=== PATIENT | male | born 1970 | race Caucasian/White ===

== ENCOUNTER → 2019-12-14 06:20 | Outpatient (CLI) | payer BC, SELFPAY ==
[2019-11-11 14:57] VITALS: BMI 35.1
--- NOTE | 2019-12-14 06:25 | ECHOCS_ITS ---
Reason For Study: CHEST PAIN Procedure This was a 2D Doppler, Color Flow transthoracic echocardiogram. The study was technically difficult. Due to body habitus. Contrast injection was performed. Left Ventricle Normal LV size. Left ventricular systolic function is normal. The estimated ejection fraction is 65 %. No evidence for diastolic dysfunction. No regional wall motion abnormalities noted. Right Ventricle Normal RV size. Normal systolic function. Atria Normal left atrium. Normal right atrium. No doppler evidence for ASD. Mitral Valve There is no mitral annular calcification. Normal mitral valve. Trivial mitral valve insufficiency. Tricuspid Valve Normal tricuspid valve. Trivial tricuspid valve insufficiency. Unable to estimate RV systolic pressure/pulmonary artery pressure due to technically difficult study. Aortic Valve Trisinus/trileaflet aortic valve. Normal aortic valve. Pulmonic Valve The pulmonic valve is not well visualized. Great Vessels Normal sized aortic root. Pericardium/Pleural No pericardial effusion. Medication Diluted definity 3.0ml given slow IV push to enhance endocardial definition. MMode/2D Measurements & Calculations LVIDd: 5.1 cm IVSd: 0.89 cm Ao root diam: 3.7 cm LVIDs: 3.6 cm LVPWd: 0.93 cm RVDd: 2.8 cm FS: 28.9 % LAV(MOD-bp): 49.8 ml LA A4 area: 16.9 cm2 LA dimension(2D): 3.6 cm LAV(MOD-bp) Indexed: 21.5 ml/m2 LAV(MOD-sp2): 44.7 ml LAV(MOD-sp4): 43.8 ml RA A4 area: 13.5 cm2 Time Measurements MV dec time: 0.17 sec Doppler Measurements & Calculations MV E max johan: 87.3 cm/sec Lat Peak E' Johan: 11.4 cm/sec Med Peak E' Johan: 8.0 cm/sec MV A max johan: 78.2 cm/sec E/E' lat: 7.7 E/E' med: 10.9 MV E/A: 1.1 Ao V2 max: 141.8 cm/sec LV V1 max: 122.4 cm/sec PA V2 max: 97.1 cm/sec Ao max P.0 mmHg LV V1 max P.0 mmHg Interpretation Summary The study was technically difficult. Contrast injection was performed. Left ventricular systolic function is normal. The estimated ejection fraction is 65 %. Trivial mitral valve insufficiency. Trivial tricuspid valve insufficiency. Unable to estimate RV systolic pressure/pulmonary artery pressure due to technically difficult study. No evidence for diastolic dysfunction. Ordering Physician: Godfrey Mon Referring Physician: Chapito Gonzalez Performed By: Socorro Lowry, RDCS, RVT
--- NOTE | 2019-12-14 08:10 | STRESSREP_ITS ---
Stress Test Report Date: 12-14-2019 Procedure: Exercise tolerance test/imaging study Indications: Chest pain Consent: Per the patient Procedure: The patient exercised on a Loco protocol for 7 minutes and 15 seconds completing Stage II and 1 minute and 15 seconds of Stage III achieving a peak heart rate of 148 bpm (90 % predicted maximal heart rate) with a peak blood pressure 152/82 mmHg and a peak MET capacity of 8 METs. The baseline ECG demonstrated normal sinus rhythm. The peak exercise ECG demonstrated no obvious ECG changes. There were no cardiac dysrhythmias pretest, during exercise, or recovery. The functional capacity was considered average. There was no complaint of chest discomfort during exercise or recovery. The examination was discontinued secondary to dyspnea and left hip discomfort. Impression: 1. Technically adequate (percent predicted maximal heart rate greater than 85%) exercise tolerance test 2. Peak exercise ECG with no obvious ECG changes 3. There were no cardiac dysrhythmias pretest, during exercise, or recovery 4. Nuclear images pending Myocardial perfusion imaging study: Technique: The patient was injected with mCi of technetium 99m Cardiolite and subsequently rest SPECT Cardiolite nuclear imaging was obtained in the horizontal long, vertical long, and short axis views. The patient exercised on a Loco protocol for 7 minutes and 15 seconds completing Stage II and 1 minute and 15 seconds of Stage III achieving a peak heart rate of 148 bpm (90 % predicted maximal heart rate) with a peak blood pressure 152/82 mmHg and a peak MET capacity of 8 METs. The patient was injected with mCi of technetium 99m Cardiolite and subsequently stress SPECT Cardiolite nuclear imaging was obtained in the horizontal long, vertical long, and short axis views. A gated Cardiolite study at peak stress was obtained. Interpretation: Rest and stress SPECT Cardiolite nuclear imaging status post realignment, no rmalization, and attenuation correction, demonstrates the appearance of relative uniform tracer uptake and myocardial perfusion appearing within normal limits. There is end systolic thickening and brightening. The gated Cardiolite study demonstrates myocardial thickening and inward wall motion. The reported LVEF is 67 %. Impression: 1. Rest and stress SPECT Cardiolite nuclear imaging demonstrate relative uniform tracer uptake and myocardial perfusion appearing within normal limits. 2. The gated Cardiolite study reports an LVEF of 67 %. This note was generated with [employer] software. It may contain incorrect words, spelling, and punctuation that were not noted in checking the note before signing.
== END ==
LOC: CVS 06:25
PROVIDERS: PCP Preventive Medicine Occupational Medicine; Referring Provider Internal Medicine Cardiovascular Disease; Visit Provider Internal Medicine Cardiovascular Disease
DX: R07.9 Chest pain, unspecified (principal); R07.2 Precordial pain; G47.00 Insomnia, unspecified; F41.9 Anxiety disorder, unspecified
CPT/HCPCS: 78452; 93017; 93306; A9500; Q9957; A4216; C8929

== ENCOUNTER → 2020-02-14 | Outpatient (CLI) | payer BC, SELFPAY ==
[2020-01-27 15:45] VITALS: BMI 34.3
== END | disposition home or self-care (01) ==
LOC: LABSPEC 17:53
PROVIDERS: PCP Preventive Medicine Occupational Medicine; Referring Provider Nurse Practitioner Primary Care; Visit Provider Nurse Practitioner Primary Care
DX: Z20.828 Contact with and (suspected) exposure to other viral communicable diseases (principal); R05 Cough; R11.0 Nausea
CPT/HCPCS: 87635; C9803; G2023; U0003

== ENCOUNTER → 2020-07-29 08:37 | Outpatient (CLI) | payer BC, SELFPAY ==
[2020-01-27 15:45] VITALS: BMI 34.3
--- NOTE | 2020-07-29 09:15 | MRI_ITS ---
STUDY: MRI LUMBAR SPINE WITHOUT CONTRAST REASON FOR EXAM: Male, 49 years old. DDD, RIGHT leg numbness,LEFT hip pain, LBP TECHNIQUE: Standardized fat and water weighted pulse sequences were obtained in the sagittal and axial planes. COMPARISON: None FINDINGS: Normal lumbar lordosis. There is no substantial scoliosis. Normal conus medullaris that terminates at the L1. L1-2: There is minimal disc space narrowing and endplate spondylosis. There is no significant disc herniation, central canal or foraminal stenosis. L2-3: There is moderate disc space narrowing and endplates spondylosis. Minimal disc bulge and mild facet arthropathy without significant central canal or foraminal stenosis. L3-4: There is mild disc space narrowing and endplates spondylosis. Mild disc bulge and facet arthropathy without significant central canal or foraminal stenosis. L4-5: There is minimal disc space narrowing and endplates spondylosis. Mild disc bulge and facet arthropathy without significant central canal stenosis. Mild right and mild left foraminal stenosis. L5-S1: There is mild disc space narrowing and endplates spondylosis. Mild disc bulge and moderate facet arthropathy without significant central canal or foraminal stenosis. There is minimal grade 1 anterolisthesis. Normal visualized sacral ala. MRI/Spine Lumbar (Routine) IMPRESSION: L5/S1: Facet arthropathy with minimal grade 1 anterolisthesis. Electronically Signed: Ratna Gallo MD at 9:26 EST Tel , Service support ,
== END ==
PROVIDERS: PCP Preventive Medicine Occupational Medicine; Referring Provider Family Medicine; Visit Provider Family Medicine
DX: M51.36 Other intervertebral disc degeneration, lumbar region (principal)
CPT/HCPCS: 72148

== ENCOUNTER 2023-06-19 13:28 | Emergency (ER) | payer BC, SELFPAY ==
[2023-06-19 13:29] VITALS: BP 128/80; PULSE 104; RESP 18; TEMP 36.9; O2SAT 94
[2023-06-19 13:57] VITALS: BP 113/76; PULSE 95; RESP 16
[2023-06-19 13:59] VITALS: BMI 34.4
--- NOTE | 2023-06-19 14:29 | CT_ITS ---
STUDY: CT BRAIN WITHOUT CONTRAST REASON FOR EXAM: Male, 52 years old. Pain RADIATION DOSAGE (If Supplied By Facility): CTDIvol = ( 44.99 ) mGy, DLP = ( 931.09 ) mGycm TECHNIQUE: Transaxial CT imaging of the brain was performed without administration of intravenous contrast material. Individualized dose optimization techniques were used for this CT. COMPARISON: No relevant priors. FINDINGS: Normal soft tissue structures. Normal calvarium. Normal size ventricles and extra-axial spaces for the patient''s age. Normal white matter tracts of the cerebral hemispheres. Normal basal ganglia and thalami. Normal brainstem. Normal cerebellum. There is no intracranial hemorrhage. There are no findings of an acute ischemic infarction. Normal visualized paranasal sinuses. CT/Brain/Head without Contrast IMPRESSION: Normal unenhanced CT scan of the brain. Electronically Signed: Sofiya Sen MD at 17:00 EST Reading Location ID and State: [id number] / Tel , Service support ,
--- NOTE | 2023-06-19 14:30 | CT_ITS ---
INDICATION: Injury/Pain EXAMINATION: CT CERVICAL SPINE - CT Spine Cervical W/O Contrast Injection TECHNIQUE: Helically acquired images were obtained of the cervical spine. 2D reformatted images were reviewed. A radiation dose optimization technique was used for this scan. IV Contrast dosage and agent: None. RADIATION DOSAGE (If Supplied By Facility): CTDIvol = ( 23.48 ) mGy, DLP = ( 567.34 ) mGycm COMPARISON: FINDINGS: VERTEBRAE: No fracture or traumatic subluxation. No discrete lytic or blastic abnormality. Normal alignment. Normal craniocervical junction and cervicothoracic junction. DISCS and SPINAL CANAL: Disc heights are preserved. No critical stenosis. Multilevel foraminal encroachment due to uncinate and facet hypertrophy. NECK SOFT TISSUES: No prevertebral soft tissue swelling. There is no cervical adenopathy. LUNG APICES: Clear. CT/Spine Cervical without Contras IMPRESSION: No evidence of acute cervical spinal fracture or spondylolisthesis. Electronically Signed: Sofiya Sen MD at 17:18 EST Reading Location ID and State: [id number] / Tel , Service support ,
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
[2023-06-19] MEDS: DiphenhydrAMINE 50 MG/ML Syringe 25 MG IV (14:43)
[2023-06-19] MEDS: 0.9% Normal Saline (1000mL) 1,000 ML 999 ML IV (14:43)
[2023-06-19] MEDS: Metoclopramide 10 MG/2 ML Vial IV (14:44)
[2023-06-19 14:45] LABS: Absolute Lymphocyte Count 0.54 X10^3/uL (0.83-4.51); Absolute Neutrophil Count 5.9 X10^3/uL (2.0-7.7); Basophil# 0.05 X10^3/uL; Basophil% 0.7 % (0-1); Eosinophil# 0.16 X10^3/uL; Eosinophils% 2.2 % (0-5); Hemoglobin 14.7 g/dL (13.0-16.5); Lymphocyte # 0.54 X10^3/ul (0.83-4.51); Lymphocyte % 7.4 % (19-41); Mean Corp Hgb Conc 33.4 g/dL (32-36); Mean Corpuscular Hgb 29.6 pg (27.0-32.0); Mean Corpuscular Volume 88.5 fL (80-94); Mean Platelet Vol. 9.5 fl (6.2-12.0); Monocyte# 0.65 X10^3/uL; Monocyte% 8.9 % (0-10); NRBC Flagged by Analyzer 0 % (0-5); Neutrophil # 5.88 X10^3/uL (2.7-7.7); Neutrophil % 80.3 % (47-70); POSITIVE DIFFERENTIAL YES; Platelet Count 250 K/mm3 (150-450); RBC Distribution Width CV 13.2 % (11.6-14.6); RBC Distribution Width SD 42.8 fl (35.1-43.9); Red Blood Count 4.97 M/mm3 (4.6-6.2); White Blood Count 7.3 K/mm3 (4.4-11.0)
[2023-06-19 14:49] LABS: Differential Indicated SCAN CRITERIA MET
[2023-06-19 14:58] LABS: Anion Gap 6 (5-15); BUN 10 mg/dL (7-18); BUN/Creat Ratio 9.9 RATIO (10-20); Calcium,Total 8.5 mg/dL (8.5-10.1); Chloride 104 mmol/L (98-107); Creatinine, Serum 1.01 mg/dL (0.70-1.30); EST Glomerular Filtration Rate 82 mL/min (>60); Est Glom Filt Rate - Afr Amer 99 mL/min (>60); Estimated Creatinine Clearance 91.77 ml/min; Glucose 110 mg/dL (74-106); Potassium 3.6 mmol/L (3.5-5.1); Sodium Level 138 mmol/L (136-145)
[2023-06-19 15:03] LABS: Differential Comment SCANNED
[2023-06-19 16:58] VITALS: BP 127/92; PULSE 91; RESP 16; O2SAT 99
--- NOTE | 2023-06-19 17:55 | ED.RN ---
Ambulatory to bathroom, gait steady.
== END 2023-06-19 19:13 | disposition home or self-care (01) ==
PROVIDERS: Emergency Provider Emergency Medicine; PCP Preventive Medicine Occupational Medicine; Visit Provider Emergency Medicine
DX: S06.0X0A Concussion without loss of consciousness, initial encounter (principal); V89.2XXA Person injured in unspecified motor-vehicle accident, traffic, initial encounter; R06.02 Shortness of breath; M54.50 Low back pain, unspecified; M54.2 Cervicalgia; R05.9 Cough, unspecified; Z87.891 Personal history of nicotine dependence
CPT/HCPCS: 70450; 72125; 80048; 85025; 96361; 96374; 96375; 99283; J7030; A4216

== ENCOUNTER 2024-11-13 03:30 | Emergency (ER) | payer BC, SELFPAY ==
[2024-11-13 03:33] VITALS: BP 126/92; PULSE 88; RESP 18; TEMP 36.5; O2SAT 95; BMI 33.3
--- NOTE | 2024-11-13 03:33 | EDS_ITS ---
HPI History of Present Illness Chief Complaint: Back PFSH PFS Medical History (Updated 11/13/24 @ 03:[address] Slim Flores, DO) Insomnia Chest pain Anxiety Home Medications ?Medication ?Instructions ?Recorded ?Last Taken ?Type diazepam 5 mg tablet 5 mg PO TID 11/08/19 Unknown History nitroglycerin 0.4 mg sublingual 0.4 mg sublingual Q5-1 5M PRN chest 11/08/19 Unknown History tablet pain zolpidem 10 mg tablet (Ambien) 10 mg PO QHS PRN sleep 11/08/19 Unknown History doxycycline hyclate 100 mg capsule 100 mg PO Q12H 11/02 09/28 Unknown History orphenadrine citrate 100 mg 100 mg PO BID PRN back adelaida n #14 11/13/24 Unknown Rx tablet,extended release tabs oxycodone 5 mg tablet 5 mg PO Q6H PRN pain 3 days #12 11/13/24 Unknown Rx tabs prednisone 20 mg tablet 40 mg (2 x 20 mg) PO DAILY 5 days 11/13/24 Unknown Rx #10 TABLETS Allergy/AdvReac Type Severity Reaction Status Date / Time No Known Allergies Allergy Verified 01/27/20 15:45 Family History Mother Diabetes Father No problems noted. Surgical History History of cholecystectomy Social History (Updated 06/19/23 @ 14:[address] Wang Herrmann, DO) Smoking Status: Former smoker alcohol intake: current details: occasional substance use type: does not use caffeine: Yes EXAM Physical Exam Const Vital Signs: 11/13/24 03:33 11/13/24 03:36 Temperature 97.7 F L Temperature Source Oral Pulse Rate 88 Respiratory Rate 18 Respiratory Effort Normal Non-Labored Respiratory Pattern Normal Blood Pressure 126/92 H Blood Pressure Mean 103 Pulse Ox 95 Oxygen Delivery Method Room Air MDM MDM MDM Narrative Medical decision making narrative: HISTORY OF PRESENT ILLNESS: Chief complaint: Back pain 54-year-old male history of chronic back pain presents with back pain. No trauma endorsed. No clear inciting event although he does remember working on a [employer] machine the other day and this may have exacerbated underlying back pain. No fever. No difficulty urinating. Patient denies any saddle anesthesia, urinary retention, bowel or bladder incontinence, lower extremity weakness, fever or IV drug use, no recent spinal manipulation or surgery, no recent urinary catheterization. REVIEW OF SYSTEMS: Pertinent positives: Back pain Pertinent negatives: Urinary complaint PHYSICAL EXAM: Nursing triage notes reviewed, Vital signs reviewed Constitutional: please see mdm HENT: MMM Eyes: Pupils equal round and reactive to light, Extraocular muscles intact Neck: No stridor, no JVD, full neck ROM Lungs: Clear to auscultation, No wheezing or rales. No increased work of breathing, no conversational dyspnea, no accessory muscle use, no nasal flaring. No respiratory distress noted Heart: Regular rate and rhythm, No murmurs, No rubs and No gallops, 2+ distal pulses (radial, femoral, posterior tibial) in all extremities Abdomen: Soft, there is no tenderness, rigidity, rebound or guarding, no obvious peritoneal signs, no palpable pulsatile abdominal masses, no auscultated abdominal bruit : No CVAT Back: No midline step-offs or deformities, TTP over left paraspinal musculature at the thoracolumbar junction, pain is reproducible on palpation of the back. Extremities: No edema, positive straight leg raise test on the left Neuro: Intact sensation L1-S1 dermatomal distributions. Intact 5/5 strength in hip flexion (T12-L3). Knee extension (L2-L4). Ankle dorsiflexion (L4-L5). Ankle plantar flexion (S1). Great toe extension (L5). 2+ patellar and Achilles DTRs. Skin: No rash or lesions noted MEDICAL DECISION MAKING: Chief Complaint: please see HPI External records reviewed: Reviewed prior imaging studies: Reviewed MRI of the back from 2019 which shows stable multilevel degenerative changes Factors affecting care: Chronic back pain Social determinants of health: Patient denies IV drug use History obtained from others: none Consults: none [facility] Narrative: The patient was initially hemodynamically stable, afebrile and nontoxic- appearing. Patient was in quite a pain initially however his vitals are completely stable. He is afebrile. He is nontoxic-appearing. His neurologic exam was nonfocal. I considered the following differential diagnosis: Space-occupying lesion of the spine (conus medullaris, epidural abscess, cauda equina), acute on chronic back pain, musculoskeletal strain, lumbar radiculopathy The patient's history and physical exam are consistent with likely acute on chronic back pain. The patient presented complaining of back pain. There was no evidence to support genitourinary etiology. There is also no evidence to suggest vascular pathology such as AAA dissection. No fevers or other evidence to suspect infectious processes, abscess, osteomyelitis etc. The patient?s neurological exam is normal with normal motor and sensory. There is no saddle paresthesias reported and no bowel or bladder incontinence or retention. I suspect the pain is mechanical in nature. Clinical suspicion, plan of care and management was discussed with the patient. The patient was instructed to follow up with their health care provider. The patient was also instructed to return if the pain worsened, changed, or developed weakness or bowel or bladder trouble. The patient agreed with plan. I completed a structured, evidence-based clinical evaluation to screen for acute non-traumatic spinal emergencies. The patient has a normal detailed neurologic exam and red flag historical factors were negative. The evidence indicates that the patient is very low risk for an acute spinal emergency and this is consistent with my clinical intuition. The risk of further workup is higher than the likelihood of the patient having a spinal epidural abscess or other dangerous emergency spinal condition. It is, therefore, in the patient?s best interest not to do additional emergent testing at this time. Shared Decision-Making I have discussed with the patient my clinical impression and the result of an evidence-based clinical evaluation to screen for spinal epidural abscess and other spinal emergencies, as well as the risk of further testing and hospitalization. The evidence shows that the risk for an acute spinal emergency is less than 1%. Although the risk of an acute spinal emergency has not been completely eliminated, the risks of further testing likely exceed any potential benefit, and the patient agrees with not pursuing further emergent evaluation for causes of back pain at this time. The patient and/or family, caregivers express understanding. The patient and/or family, caregivers agrees with the plan. Total critical care time today provided was at least 0 minutes. This excludes separately billable procedures. Critical care time (if documented) is secondary to the patient having high probability of clinically significant/life threatening deterioration in the patient's condition which required my urgent intervention. Impression: 1. Acute on chronic back pain Dispo: Discharge home This note was generated with [employer] dictation software. It may contain incorrect words, spelling, and punctuation that were not noted in review of the chart prior to signing. Discharge Plan Triage Chief Complaint: Back ED Provider: Slim Flores Dx/Rx/DC Orders Instructions: ED Back Pain (Acute or Chronic) Prescriptions: New oxycodone 5 mg tablet 5 mg PO Q6H PRN (Reason: pain) 3 Days Qty: 12 0RF orphenadrine citrate 100 mg tablet extended release 100 mg PO BID PRN (Reason: back pain) Qty: 14 0RF prednisone 20 mg tablet 40 mg PO DAILY 5 Days Qty: 10 0RF No Action diazepam 5 mg tablet 5 mg PO TID nitroglycerin 0.4 mg tablet, sublingual 0.4 mg SUBLINGUAL Q5-15M PRN (Reason: chest pain) Rx Instructions: as a single dose; administer 5-10 minutes before situation known to precipitate angina attack zolpidem [Ambien] 10 mg tablet 10 mg PO QHS PRN (Reason: sleep) doxycycline hyclate 100 mg capsule 100 mg PO Q12H Stand Alone Forms: ED Work / School Excuse Primary Care Provider: TAYLOR NUNES Referrals: Jean-Claude Michael MD [Med Staff - Active Staff] - TAYLOR NUNES NP-C [Primary Care Provider] - Activity Restrictions/Additional Instructions: Thank you for trusting us with your care today! Your history and clinical exam are not consistent with an acute spinal emergency. Please take Tylenol (2 pills, 650 mg), ibuprofen (2 pills, 400 mg) every 6 hours as needed for pain and fever control. Please go to local pharmacy or drugstore obtain Salonpas lidocaine patches and apply these directly to your back for additional pain relief. Please take prednisone and Norflex as prescribed. Please take oxycodone for breakthrough pain the above regimen does not control your pain. Please do not take oxycodone and diazepam at the same time as both these medicines can cause you to stop breathing if taken together. Please return to the emergency department if your symptoms change or worsen. Please follow with your primary care physician and orthopedics for further outpatient evaluation and management. Print Language: [place] Disposition Disposition: Home, Self Care
[2024-11-13] MEDS: Orphenadrine 100 MG Tablet PO (03:52)
[2024-11-13] MEDS: Ibuprofen 200 MG Tablet 400 MG PO (03:52)
[2024-11-13] MEDS: Lidocaine 5% Patch 1 PATCH TOPICAL (03:52)
[2024-11-13] MEDS: oxyCODONE 5 MG Tablet PO (03:52)
[2024-11-13] MEDS: predniSONE 20 MG Tablet 40 MG PO (03:53)
[2024-11-13 03:58] VITALS: BP 110/84; PULSE 88; RESP 18; TEMP 36.6; O2SAT 97
== END 2024-11-13 04:06 | disposition home or self-care (01) ==
PROVIDERS: Emergency Provider Emergency Medicine; PCP Nurse Practitioner Family; Visit Provider Emergency Medicine
DX: M54.9 Dorsalgia, unspecified (principal); G89.29 Other chronic pain; M47.9 Spondylosis, unspecified; Z87.891 Personal history of nicotine dependence
CPT/HCPCS: 99284